=== PATIENT | male | born 1995 | race Caucasian/White ===

== ENCOUNTER 2017-02-11 18:21 | Emergency (ER) | payer SELFPAY ==
[~2017-02-11 18:21] MED LIST: CIPRO 500 MG PO; FLAGYL 500 MG PO; NORC 5-325 PO
== END 2017-02-11 19:22 | disposition left against medical advice (07) ==
LOC: E/R 18:21
DX: Z53.21 Procedure and treatment not carried out due to patient leaving prior to being seen by health care provider (principal)

== ENCOUNTER 2017-07-13 14:02 | Emergency (ER) | payer MEDICAID ==
[~2017-07-13] VITALS: Ht 177.8 cm; Wt 104.5 kg
[2017-07-13 14:07] VITALS: Ht 177.8 cm; Wt 104.5 kg
[2017-07-13] MEDS ORDERED: HYDROCODONE/APAP (5/325) TAB PO ONE (15:00)
--- NOTE | 2017-07-13 15:39 | RADRPT ---
PROCEDURE: US Abdomen. CLINICAL INDICATION: abdominal pain , trauma TECHNIQUE: Multiple real-time images were acquired of the patient's right upper quadrant abdomen a nd retroperitoneum utilizing a high resolution transducer. COMPARISON: 12/28/2013 FINDINGS: There is a hypoechoic heterogeneous soft tissue structure in the right upper quadrant, anterior to t he right kidney measuring 13.7 x 4.5 x 7.0 cm. There is a small amount of free fluid in the lower pelvis. RPTAT: AA IMPRESSION: Large heterogeneous soft tissue structure in the right upper quadrant may represent a hematoma versu s a mass. Further evaluation with CT is recommended. Small amount of free fluid in the lower pelvis. .Rajinder Jones MD, MD Date Time Electronically viewed and signed by .Rajinder Jones MD, on 07/13/2017 15:39 .S/
[2017-07-13 16:16] LABS: BASOPHILS % 0.1 % (0.0-2.0); HEMATOCRIT 34.4 % (42.0-52.0); HEMOGLOBIN 12.1 g/dl (14.0-18.0); LYMPHOCYTES # 2.8 10^3/ul (0.8-2.9); LYMPHOCYTES % 13.3 % (15.0-51.0); MEAN CORPUSCULAR HEMOGLOBIN 30.4 pg (29.0-33.0); MEAN CORPUSCULAR HGB CONC 35.2 g/dl (32.0-37.0); MEAN CORPUSCULAR VOLUME 86.4 fl (82.0-101.0); MEAN PLATELET VOLUME 9.6 fl (7.4-10.4); MONOCYTE # 1.4 10^3/ul (0.3-0.9); MONOCYTES % 6.8 % (0.0-11.0); NEUTROPHIL # 16.4 10^3/ul (1.6-7.5); NEUTROPHILS % 78.5 % (39.0-77.0); PLATELET COUNT 297 10^3/UL (140-415); RED BLOOD COUNT 3.98 10^6/ul (4.70-6.10); RED CELL DISTRIBUTION WIDTH 12.5 % (11.5-14.5); WHITE BLOOD COUNT 20.9 10^3/ul (4.8-10.8)
[2017-07-13] MEDS ORDERED: IOHEXOL 300MG/ML 150 ML BTL ONE (16:28)
[2017-07-13] MEDS ORDERED: SOD CHLORIDE 0.9% 100 ML ONE (16:28)
[2017-07-13 16:31] LABS: INR 0.99; PROTIME 13.1 Sec (12.2-14.2)
[2017-07-13 16:39] LABS: ALBUMIN 4.9 g/dl (3.3-4.9); ALBUMIN/GLOBULIN RATIO 1.58; BILIRUBIN,INDIRECT 1.3 mg/dl (0-1.1); BILIRUBIN,TOTAL 1.3 mg/dl (0.2-1.3); CALCIUM 9.4 mg/dl (8.4-10.2); CREATININE 1.1 mg/dl (0.61-1.24)
--- NOTE | 2017-07-13 17:32 | RADRPT ---
PROCEDURE: CT abdomen and pelvis with contrast. CLINICAL INDICATION: Right upper quadrant pain. Status post fall last night. Hematoma. TECHNIQUE: CT of the abdomen/pelvis was performed utilizing axial images with reconstructions in s agittal and coronal planes following the intravenous administration of 100 cc of Omnipaque-300 contr ast. The administered radiation dose is CTDI 17.78 mGy, DLP 1102.06 mGy-cm. One or more of the follo wing dose reduction techniques were used: Automated exposure control, Adjustment of the mA and/or kV according to patient size, or Use of iterative reconstruction technique. COMPARISON: There are no similar studies submitted for comparison. FINDINGS: Lung bases: The lung bases are clear.The heart is normal size without pericardial effusion. CT ABDOMEN: Gastrointestinal tract: There is no bowel obstruction.No abnormal colonic wall thickening is identif ied.There is no pneumoperitoneum. Liver: The liver is normal in size without focal lesion. There is no evidence of liver laceration. There is hepatic fatty infiltration. There is no intrahepatic ductal dilatation. Gallbladder: The gallbladder is grossly unremarkable. Pancreas: The pancreas is grossly unremarkable. Spleen: The spleen is normal in size without focal lesion. Kidneys: There is non enhancement along the superior anterior aspect of the right kidney cortex (cesia ge 71 series 3) measuring 1.7 cm in depth suggesting most compatible with renal. There is an adjace nt large hematoma which measures 16 cm cranial caudally by 8 cm transverse by 6 cm anteroposteriorly within the right hemiabdomen. There is no active extravasation of contrast. There is surrounding he matoma/fluid which extends into the right hemiabdomen as well as the mesentery and right aspect of t he pelvis with mild layering free fluid within the pelvis. There is also fluid surrounding IVC in wh ich underlying injury is not entirely excluded. There is also fluid surrounding the duodenum. No re nal calculi are identified.There is no evidence of hydronephrosis. Adrenal glands: There is a 2.9 cm right adrenal amorphous density (image 53 series 3). The left adr enal gland is within normal limits. Retroperitoneum: There is no retroperitoneal adenopathy.The aorta is normal in caliber. CT PELVIS: Pelvic organs: The prostate is normal size. Bladder: The bladder is unremarkable. No pelvic adenopathy is identified. Osseous structures: No destructive lytic or blastic osseous lesion is identified. IMPRESSION: 1. The right anterosuperior renal laceration with adjacent 16 x 8 x 6 cm right hemiabdomen hematoma with fluid extending into the mesentery as well as the right pelvis. There is no active extravasat ion. There is also fluid surrounding IVC and duodenum in which underlying injury is not entirely exc luded. 2. There is a 2.9 cm right adrenal amorphous density which may represent adrenal hematoma or possib le underlying adrenal nodule. Further workup and attention on follow-up imaging may be formed as cl inically warranted. 3. Hepatic fatty infiltration. Correlate with LFTs. Further findings as detailed above. These findings were discussed with Dr. Kennedi Chambers at 05:26 p.m. on July 13, 2017. RPTAT: HVF .Trav Wong MD, Date Time Electronically viewed and signed by .Trav Wong MD, on 07/13/2017 17:31 .F/
[2017-07-13] MEDS ORDERED: morphine 10 MG INJ IV ONE (18:00)
--- NOTE | 2017-07-13 18:07 | ERA ---
ER Documentation Chief Complaint Date/Time DATE: 07/13/17 TIME: 17:36 Chief Complaint right rib pain s/p ground level fall last night HPI 21-year-old male complaining of right upper quadrant pain after a fall last night. Patient stated that he was intoxicated at a time. He tripped on the curb , fell face forward. He landed on his stomach. This happened up approximately 1 AM this morning. He has severe pain right now. Pain is worse with movement or taking a deep breath. Denies hitting his head in the fall. Patient denies any prior medical history. Surgical history for liver abscess. Denies tobacco or illicit drug use. Alcohol daily. ROS All systems reviewed and are negative except as per history of present illness. Medications Home Meds Reported Medications [cipro 500 mg] No Conflict Check, 500 MG PO BID times 10 days 12/24/13 [flagyl 500mg] No Conflict Check, 500 MG PO TID times 10 days 12/24/13 Hydrocodone Bit-Acetaminophen* (Eddy*) 1 Tab Tab, 1 TAB PO Q4 Y 1or 2 tabs as needed for pain 12/24/13 Allergies Allergies: Coded Allergies: No Known Allergy (Unverified , 07/13/17) PMhx/Soc History of Surgery: Yes (RT HAND SURGERY , LT LEG SURGERY, liver) Anesthesia Reaction: No Hx Neurological Disorder: No Hx Respiratory Disorders: No Hx Cardiac Disorders: No Hx Psychiatric Problems: No Hx Alcohol Use: Yes (BEER 40 OZ A DAY) Hx Substance Use: No Hx Tobacco Use: No Smoking Status: Never smoker Physical Exam Vitals Vital Signs Date Time Temp Pulse Resp B/P Pulse Ox O2 Delivery O2 Flow Rate FiO2 07/13/17 14:07 97.4 120 20 136/80 99 Physical Exam General: Patient is well-developed. Awake, alert, and conversant, in no apparent distress Skin: Warm and dry Head: Normocephalic, atraumatic without palpable deformities Eyes: Pupils equal, round, and reactive to light. Extraocular movements intact. No periorbital ecchymosis or step-off Chest: No surface trauma. Nontender without crepitus or deformity. No palpable subcutaneous air. Lungs have good tidal volume, lungs clear to auscultate bilaterally Heart: Regular rate and rhythm. No murmur, rub, or gallop Abdomen: No abrasions or ecchymosis or surface trauma. No distention. Bowel sounds are active. Right upper quadrant tenderness to palpation with guarding; no rebound, or rigidity. No masses Back: No contusions, ecchymosis, or abrasions are noted. Nontender without step-off or deformity to firm midline palpation. No CVA tenderness or flank ecchymosis Extremities: No surface trauma. Full range of motion without limitation or pain. Good strength in all extremities. Sensation to light touch intact. All peripheral pulses are intact and equal Neuro: Alert and oriented 4, GCS 15, cranial nerves II through XII intact. Motor and sensory exam is nonfocal. Reflexes are symmetric Result Diagram: 07/13/17 1600 07/13/17 1600 Results 24 hrs Laboratory Tests Test 07/13/17 16:00 White Blood Count 20.910^3/ul Red Blood Count 3.9810^6/ul Hemoglobin 12.1g/dl Hematocrit 34.4% Mean Corpuscular Volume 86.4fl Mean Corpuscular Hemoglobin 30.4pg Mean Corpuscular Hemoglobin Concent 35.2g/dl Red Cell Distribution Width 12.5% Platelet Count 36139^3/UL Mean Platelet Volume 9.6fl Neutrophils % 78.5% Lymphocytes % 13.3% Monocytes % 6.8% Eosinophils % 0.0% Basophils % 0.1% Nucleated Red Blood Cells % 0.0/100WBC Neutrophils # 16.410^3/ul Lymphocytes # 2.810^3/ul Monocytes # 1.410^3/ul Eosinophils # 0.010^3/ul Basophils # 0.010^3/ul Nucleated Red Blood Cells # 0.010^3/ul Prothrombin Time 13.1Sec Prothrombin Time Ratio 1.0 INR International Normalized Ratio 0.99 Activated Partial Thromboplast Time 23.0Sec Sodium Level 135mmol/L Potassium Level 5.0mmol/L Chloride Level 99mmol/L Carbon Dioxide Level 22mmol/L Anion Gap 19 Blood Urea Nitrogen 13mg/dl Creatinine 1.10mg/dl Glucose Level 119mg/dl Calcium Level 9.4mg/dl Total Bilirubin 1.3mg/dl Direct Bilirubin 0.00mg/dl Indirect Bilirubin 1.3mg/dl Aspartate Amino Transf (AST/SGOT) 107IU/L Alanine Aminotransferase (ALT/SGPT) 143IU/L Alkaline Phosphatase 68IU/L Total Protein 8.0g/dl Albumin 4.9g/dl Globulin 3.10g/dl Albumin/Globulin Ratio 1.58 Current Medications Medications (Trade) Dose Ordered Sig/Sarah Route PRN Reason Start Time Stop Time Status Last Admin Dose Admin Acetaminophen/ Hydrocodone Bitart (Eddy (5/325)) 1 tab ONCE ONCE PO 07/13/17 15:00 07/13/17 15:01 DC 07/13/17 14:43 IV Flush 10 ml 10 ml STK-MED ONCE .ROUTE 07/13/17 16:28 07/13/17 16:29 DC 07/13/17 16:49 Sodium Chloride (NS) 100 ml @ ud STK-MED ONCE .ROUTE 07/13/17 16:28 07/13/17 16:29 DC 07/13/17 16:49 Iohexol (Omnipaque 300mg/ ml) 150 ml STK-MED ONCE .ROUTE 07/13/17 16:28 07/13/17 16:29 DC 07/13/17 16:49 Morphine Sulfate (morphine) 8 mg ONCE ONCE IV 07/13/17 18:00 07/13/17 18:01 DC 07/13/17 17:39 PROCEDURE: US Abdomen. CLINICAL INDICATION: abdominal pain , trauma TECHNIQUE: Multiple real-time images were acquired of the patient's right upper quadrant abdomen and retroperitoneum utilizing a high resolution transducer. COMPARISON: 12/28/2013 FINDINGS: There is a hypoechoic heterogeneous soft tissue structure in the right upper quadrant, anterior to the right kidney measuring 13.7 x 4.5 x 7.0 cm. There is a small amount of free fluid in the lower pelvis. RPTAT: AA IMPRESSION: Large heterogeneous soft tissue structure in the right upper quadrant may represent a hematoma versus a mass. Further evaluation with CT is recommended. Small amount of free fluid in the lower pelvis. .Rajinder Jones MD, MD Date Time Electronically viewed and signed by .Rajinder Jones MD, on 07/13/2017 15: 39 .S/ CC: RAMANSTERLINGRYLANGHAZAL Kelley NP PROCEDURE: CT abdomen and pelvis with contrast. CLINICAL INDICATION: Right upper quadrant pain. Status post fall last night. Hematoma. TECHNIQUE: CT of the abdomen/pelvis was performed utilizing axial images with reconstructions in sagittal and coronal planes following the intravenous administration of 100 cc of Omnipaque-300 contrast. The administered radiation dose is CTDI 17.78 mGy, DLP 1102.06 mGy-cm. One or more of the following dose reduction techniques were used: Automated exposure control, Adjustment of the mA and/or kV according to patient size, or Use of iterative reconstruction technique. COMPARISON: There are no similar studies submitted for comparison. FINDINGS: Lung bases: The lung bases are clear.The heart is normal size without pericardial effusion. CT ABDOMEN: Gastrointestinal tract: There is no bowel obstruction.No abnormal colonic wall thickening is identified.There is no pneumoperitoneum. Liver: The liver is normal in size without focal lesion. There is no evidence of liver laceration. There is hepatic fatty infiltration. There is no intrahepatic ductal dilatation. Gallbladder: The gallbladder is grossly unremarkable. Pancreas: The pancreas is grossly unremarkable. Spleen: The spleen is normal in size without focal lesion. Kidneys: There is non enhancement along the superior anterior aspect of the right kidney cortex (image 71 series 3) measuring 1.7 cm in depth suggesting most compatible with renal. There is an adjacent large hematoma which measures 16 cm cranial caudally by 8 cm transverse by 6 cm anteroposteriorly within the right hemiabdomen. There is no active extravasation of contrast. There is surrounding hematoma/fluid which extends into the right hemiabdomen as well as the mesentery and right aspect of the pelvis with mild layering free fluid within the pelvis. There is also fluid surrounding IVC in which underlying injury is not entirely excluded. There is also fluid surrounding the duodenum. No renal calculi are identified.There is no evidence of hydronephrosis. Adrenal glands: There is a 2.9 cm right adrenal amorphous density (image 53 series 3). The left adrenal gland is within normal limits. Retroperitoneum: There is no retroperitoneal adenopathy.The aorta is normal in caliber. CT PELVIS: Pelvic organs: The prostate is normal size. Bladder: The bladder is unremarkable. No pelvic adenopathy is identified. Osseous structures: No destructive lytic or blastic osseous lesion is identified. IMPRESSION: 1. The right anterosuperior renal laceration with adjacent 16 x 8 x 6 cm right hemiabdomen hematoma with fluid extending into the mesentery as well as the right pelvis. There is no active extravasation. There is also fluid surrounding IVC and duodenum in which underlying injury is not entirely excluded. 2. There is a 2.9 cm right adrenal amorphous density which may represent adrenal hematoma or possible underlying adrenal nodule. Further workup and attention on follow-up imaging may be formed as clinically warranted. 3. Hepatic fatty infiltration. Correlate with LFTs. Further findings as detailed above. These findings were discussed with Dr. Rylan Camargo at 05:26 p.m. on July 13, 2017. RPTAT: HVF .Trav Wong MD, MD Date Time Electronically viewed and signed by .Trav Wong MD, MD on 07/13/2017 17:31 .F/ CC: RYLAN CAMARGO. DENTAL PRACTICE MANAGER Procedures/MDM 21-year-old male presented ED with right upper quadrant abdominal pain after a fall this morning. Abdominal ultrasound showed a hematoma in the right upper quadrant and free fluid in the pelvis. CT abdomen pelvis with IV contrast was then obtained. Patient has a right renal laceration was large adjacent [address] His hemoglobin is 12.1, he does not fit the transfusion criteria. Patient does have a elevated pulse and respiratory rate, BP is within normal range at 136/80. Patient was given Eddy 5/325 p.o. initially for pain. Patient reports no relief of pain after Eddy. Morphine 8 mg IV was then given to the patient. Patient's reported history does not appear to support his injury. However, patient only added that he was running at full speed when the fall occurred. I consulted Dr. Randolph on the patient. Dr. Randolph also examined the patient. Patient is transferred to ED [address] Randolph's care, pending transfer to a trauma center. Condition: Stable Departure Diagnosis: Primary Impression: Kidney laceration Qualified Code: S37.031A - Kidney laceration, right, initial encounter Condition: Stable RYLAN CAMARGO NP Jul 13, 2017 17:46
--- NOTE | 2017-07-13 18:20 | RADRPT ---
PROCEDURE: Portable chest x-ray. CLINICAL INDICATION: 21 years male trauma TECHNIQUE: Portable AP view of the chest. COMPARISON: December 22, 2013 FINDINGS: Normal aortic contour. Cardiomediastinal contours are normal. Linear atelectasis or scar left lung base. Lungs are otherwise clear. Negative for pleural effusion or pneumothorax.. There is a plate and screw fixation of the left clavicle. There is an old ununited fracture of the mid right clavicle with inferior displacement of distal fracture fragment and hyperostosis. Negativ e for evidence of an acute bony abnormality. IMPRESSION: Negative for evidence of acute chest process. Old ununited fracture right clavicle and orthopedic person rdware left clavicle. RPTAT: HCTS Physician Marleen Date Time Electronically viewed and signed by Physician Marleen on 07/13/2017 18:20 CS/
[2017-07-13 18:36] VITALS: BP 140/70; PULSE 111; RESP 20; TEMP 98.5
--- NOTE | 2017-07-13 18:38 | QN ---
Documentation Comment I have seen and evaluated the patient along with the PA and/or SALES EFFECTIVENESS MANAGER provider. I agree with the evaluation and plan of care. Please see their documentation for full ER course and evaluation. In short: This is a 21-year-old male who presents with right upper quadrant abdominal pain status post blunt trauma yesterday. He states that he was drinking alcohol and fell forward onto his abdomen. He now describes moderate to severe abdominal pain. He denies head trauma or loss of consciousness, no neck pain. On exam: Airway is intact Bilateral breath sounds Strong distal pulses No obvious deficits General: Well developed, well nourished, no acute distress Head: Normocephalic, atraumatic Eyes: Pupils equally reactive, EOM intact ENT: Moist mucous membranes Neck: Supple, no lymphadenopathy, No midline tenderness, deformities, step-offs to the cervical spine, full active and passive range of motion without midline pain. Respiratory: Lungs clear bilaterally, no distress, no chest wall tenderness, no crepitus Cardiovascular: RRR, no murmurs, rubs, or gallops Abdominal: Soft, mild diffuse tenderness with voluntary guarding, mild peritonitis, stable pelvis : Deferred MSK: No edema, no unilateral swelling, 5/5 strength, no midline tenderness deformities or step-offs to the thoracolumbar spine Neurologic: Alert and oriented, moving all extremities, normal speech, no focal weakness, no cerebellar signs Skin: No ecchymoses or bruising to the chest or abdomen Psych: Normal mood CT IMPRESSION: 1. The right anterosuperior renal laceration with adjacent 16 x 8 x 6 cm right hemiabdomen hematoma with fluid extending into the mesentery as well as the right pelvis. There is no active extravasation. There is also fluid surrounding IVC and duodenum in which underlying injury is not entirely excluded. 2. There is a 2.9 cm right adrenal amorphous density which may represent adrenal hematoma or possible underlying adrenal nodule. Further workup and attention on follow-up imaging may be formed as clinically warranted. 3. Hepatic fatty infiltration. Correlate with LFTs. Further findings as detailed above. These findings were discussed with Dr. Kennedi Chambers at 05:26 p.m. on July 13, 2017. RPTAT: HVF Chest x-ray: I reviewed and interpreted a 1 view of the chest Mediastinum: No enlargement Cardiac silhouette: No cardiomegaly Airspace: Clear lung mina bilaterally without evidence of pneumothorax Bones: No evidence of fracture Assessment and plan: CT shows evidence of blunt intra-abdominal trauma. Chest x-ray was ordered that shows normal mediastinum. No signs or symptoms concerning for closed head injury, C-spine injury. Chest x-ray does not warrant CTA of the chest. The patient will benefit from transfer to a trauma center. We do not have a trauma surgeon available at this hospital. A phone call was placed to [facility] and Dr. Orourke was notified and has accepted the case. The patient is stable for transfer. He was informed of the risks benefits and alternatives and I believe the benefits outweigh the risks at this point. 2 large-bore peripheral IVs were inserted. The patient is hemodynamically stable and does not require transfusion at this time. Symptoms seem to have stabilized. There is concern for possible duodenal injury and adrenal hematoma as well. Accepting care team and consultations: I discussed the current laboratory data, diagnostic imaging and emergency care provided. Admitting team: Dr. Orourke Admitting team indication: Transfer to [facility] given higher level of care SUMMER CHILDERS MD Jul 13, 2017 18:37
== END 2017-07-13 18:55 | disposition short-term general hospital (02) ==
LOC: FTE 14:02 → E/R 18:55
DX: S37.031A Laceration of right kidney, unspecified degree, initial encounter (principal); W01.0XXA Fall on same level from slipping, tripping and stumbling without subsequent striking against object, initial encounter; Y92.9 Unspecified place or not applicable
CPT/HCPCS: 71010; 74177; 76705; 80053; 85025; 85610; 85730; 96374; J2270; Q9967; Z7502; Z7610

== ENCOUNTER 2019-01-08 00:42 | Emergency (ER) | payer MEDICAID, OTHER ==
[~2019-01-08] VITALS: Ht 180.3 cm; Wt 111.0 kg
[2019-01-08 00:45] VITALS: BP 152/93; PULSE 105; RESP 19; Ht 180.3 cm; Wt 111.0 kg
[2019-01-08] MEDS ORDERED: LIDOCAINE 1% (MDV) 10 ML INJ INJ STA (01:22)
[2019-01-08] MEDS ORDERED: AMOX1TAB10 PO (01:45)
--- NOTE | 2019-01-08 01:48 | ERD ---
ER Documentation Chief Complaint Chief Complaint UPPER LIP LACERATION S/P BEING HIT W/ A BASEBALL YESTERDAY HPI Patient presents with a laceration to his upper lip that was sustained morning at around 11 AM. He was playing baseball and a ball was coming to him on the ground and hit him in the foot and went up ricocheted and hit him in the lip and sliced his lip open. He has pain only on his lip. No facial pain. No headache. No neck pain. Tetanus is up-to-date. ROS All systems reviewed and are negative except as per history of present illness. Medications Home Meds Active Scripts Amoxicillin/Potassium Clav (Amox-Clav 875-125 mg Tablet) 875-125 mg Tab, 1 TAB PO BID for 7 Days, #14 TAB Prov:ADDISON CARLSON PA-C 01/08/19 Reported Medications [cipro 500 mg] No Conflict Check, 500 MG PO BID times 10 days 12/24/13 [flagyl 500mg] No Conflict Check, 500 MG PO TID times 10 days 12/24/13 Hydrocodone Bit-Acetaminophen* (Wellborn*) 1 Tab Tab, 1 TAB PO Q4 PRN 1or 2 tabs as needed for pain 12/24/13 Allergies Allergies: Coded Allergies: No Known Allergy (Unverified , 07/13/17) PMhx/Soc History of Surgery: Yes (RT HAND SURGERY , LT LEG SURGERY, liver) Anesthesia Reaction: No Hx Neurological Disorder: No Hx Respiratory Disorders: No Hx Cardiac Disorders: No Hx Psychiatric Problems: No Hx Alcohol Use: Yes (BEER 40 OZ A DAY) Hx Substance Use: Yes (acid, lsd) Hx Tobacco Use: No Smoking Status: Never smoker FmHx Family History: No diabetes Physical Exam Vitals Vital Signs Date Temp Pulse Resp B/P (MAP) Pulse Ox O2 O2 Flow FiO2 Time Delivery Rate 01/08/19 97.2 105 19 152/93 98 00:45 (112) Physical Exam INITIAL VITAL SIGNS: Reviewed by me GENERAL: Awake, alert and oriented x 4, well appearing, nontoxic, speaking in full sentences. No acute distress HEAD: Atraumatic NECK: Supple. No masses. Full range of motion. No meningismus. No midline tenderness. THROAT: No tonilar erythema or edema. No exudates. Uvula midline. No kissing tonsils. RESPIRATORY: Clear to auscultation bilaterally. Symmetric chest wall rise. No wheezing or rales. No accessory muscle use. CV: Regular rate and rhythm. No murmurs, rubs, or gallops. BACK: No midline tenderness to palpation. No step-offs. SKIN: Upper lip laceration in the mid lip approximately 1 cm in length gaping Results 24 hrs Current Medications Medications Dose Sig/Sarah Start Time Status Last (Trade) Ordered Route PRN Stop Time Admin Dose Reason Admin Lidocaine 10 ml ONCE STAT 01/08/19 Cancel HCl INJ 01:22 01/08/19 (Lidocaine 01:23 1% (Mdv) 10 ml) Procedures/MDM The skin edges of the laceration were infiltrated with 1% lidocaine . The laceration was irrigated with copious amounts of normal saline. The wound was prepped with Betadine. On examination under direct light, there was no foreign body seen. The laceration was repaired with simple interrupted sutures. After repair, there was no continuing bleeding on repair and there did not a ppear to be any complication related to repair. The patient tolerated the procedure well and the wound was appropriately dressed and bandaged. I recommended the patient return in 2 days for a wound check and 5 days for removal of sutures. Patient has pain only at the site of his lip laceration. No facial pain or headache concerning for acute facial fracture or intracranial abnormality and therefore no imaging ordered. Patient counseled regarding my diagnostic impression and care plan. Prior to discharge all questions answered. Pt agrees with treatment plan and understands strict return precautions. Pt is instructed to follow up with primary care provider within 24-48 hours. Precautionary instructions provided including instructions to return to the ER if not improving or for any worsening or changing symptoms or concerns. Departure Diagnosis: Primary Impression: Lip laceration Condition: Stable Patient Instructions: Laceration, Lip/Mouth Additional Instructions: Follow up with your physician to remove the stitches:For Face wounds 5-7 days.For Elsewhere on the body 7-10 days. Follow up in 2 days in your clinic for wound check. ADDISON CARLSON PA-C Jan 08, 2019 01:48
[2019-01-08] MEDS ORDERED: LIDOCAINE 1% (MPF) 5 ML VIAL INJ ONE (02:00)
== END 2019-01-08 02:08 | disposition home or self-care (01) ==
LOC: FTE 00:42
DX: S01.511A Laceration without foreign body of lip, initial encounter (principal); W21.03XA Struck by baseball, initial encounter; Y92.320 Baseball field as the place of occurrence of the external cause
CPT/HCPCS: 12011; Z7502; Z7610

== ENCOUNTER 2019-01-16 13:02 | Emergency (ER) | payer OTHER ==
[~2019-01-16] VITALS: Ht 172.7 cm; Wt 112.0 kg
[~2019-01-16 13:02] MED LIST changes: +AMOX1TAB10 PO
[2019-01-16 13:04] VITALS: Ht 172.7 cm; Wt 112.0 kg
--- NOTE | 2019-01-16 15:55 | ERD ---
ER Documentation Chief Complaint Chief Complaint suture removal from lip and work note HPI 23-year-old male, previously healthy, returns to the emergency department for suture removal and in no to return to work without restrictions. The patient refers feeling good, no pain, no bleeding. ROS All systems reviewed and are negative except as per history of present illness. Medications Home Meds Active Scripts Amoxicillin/Potassium Clav (Amox-Clav 875-125 mg Tablet) 875-125 mg Tab, 1 TAB PO BID for 7 Days, #14 TAB Prov:ADDISON CARLSON PA-C 01/08/19 Reported Medications [cipro 500 mg] No Conflict Check, 500 MG PO BID times 10 days 12/24/13 [flagyl 500mg] No Conflict Check, 500 MG PO TID times 10 days 12/24/13 Hydrocodone Bit-Acetaminophen* ([place]*) 1 Tab Tab, 1 TAB PO Q4 PRN 1or 2 tabs as needed for pain 12/24/13 Allergies Allergies: Coded Allergies: No Known Allergy (Unverified , 07/13/17) PMhx/Soc History of Surgery: Yes (RT HAND SURGERY , LT LEG SURGERY, liver) Anesthesia Reaction: No Hx Neurological Disorder: No Hx Respiratory Disorders: No Hx Cardiac Disorders: No Hx Psychiatric Problems: No Hx Alcohol Use: Yes (BEER 40 OZ A DAY) Hx Substance Use: Yes (acid, lsd) Hx Tobacco Use: No Smoking Status: Current every day smoker FmHx Family History: coronary disease; No diabetes Physical Exam Vitals Vital Signs Date Temp Pulse Resp B/P (MAP) Pulse Ox O2 O2 Flow FiO2 Time Delivery Rate 01/16/19 98.4 94 18 154/88 99 Room Air 16:05 (110) 01/16/19 98.6 102 18 173/83 98 13:04 (113) Physical Exam Const: No acute distress Head: Atraumatic Eyes: Normal Conjunctiva ENT: Upper lip with a stitches in place, clean, dry and intact. Normal External Ears, Nose and Mouth. Neck: Full range of motion. No meningismus. Resp: Clear to auscultation bilaterally Cardio: Regular rate and rhythm, no murmurs Abd: Soft, non tender, non distended. Normal bowel sounds Skin: No petechiae or rashes Back: No midline or flank tenderness Ext: No cyanosis, or edema Neur: Awake and alert Psych: Normal Mood and Affect Procedures/MDM Status post laceration repair. Adequate pain control, no fever, no chills, good compliance with medications no side effects. Stitches removed without complications. Patient is stable, with adequate healing process, okay to discharge home. The patient was instructed to follow up with the primary care provider. If symptoms persist, worsen or new symptoms develop, then patient should return to the ED immediately. Instructions explained and given directly by me to the patient with acknowledgment and demonstrated understanding. Disclaimer: Inadvertent spelling and grammatical errors are likely due to EHR/dictation software use and do not reflect on the overall quality of patient care. Also, please note that the electronic time recorded on this note does not necessarily reflect the actual time of the patient encounter. Departure Diagnosis: Primary Impression: Encounter for removal of sutures Condition: Stable Patient Instructions: Suture Removal, No Complication (Child) Additional Instructions: Thank you very much for allowing us to participate in your care. Your health and safety is our top priority at [facility]. Call your primary care doctor TOMORROW for an appointment during the next 2-4 days and bring all the information and medications prescribed. Have prescriptions filled and follow precisely the directions on the label. If the symptoms get worse and your provider is unavailable, return to the Emergency Department immediately. NIKOLE MONTANA MD Jan 16, 2019 15:55
[2019-01-16 16:05] VITALS: BP 154/88; PULSE 94; RESP 18
== END 2019-01-16 16:05 | disposition home or self-care (01) ==
LOC: FTE 13:02
DX: Z48.02 Encounter for removal of sutures (principal); F17.210 Nicotine dependence, cigarettes, uncomplicated
CPT/HCPCS: 99281